=== PATIENT | male | born 1965 | race Caucasian/White ===

== ENCOUNTER 2019-08-22 16:14 | Emergency (ER) | payer SELFPAY ==
[~2019-08-22] VITALS: Ht 170.2 cm; Wt 94.3 kg
--- NOTE | 2019-08-22 16:14 | NUR ---
53/M BIBA FROM [facility] FOR ETOH INTOXICATION. PT DENIES CP, SOB, N/V, DENIES ANY PAIN. PT AOX2 (NAME, PLACE), SPEECH SLURRED, SLOW TO ANSWER, +ETOH SMELL, SKIN FLUSHED WARM AND DRY, RR EVEN AND UNLABORED. LUNG SOUNDS CLEAR BL. BS HYPOACTIVE X4, ABD SOFT LARGE ROUND NONTENDER TO TOUCH. WET PANTS NOTED DUE TO PT URINATING SELF. DENIES KNOWN MED HX.
[2019-08-22 16:21] VITALS: BP 130/69
--- NOTE | 2019-08-22 16:29 | NUR ---
DR DOUGLAS AT BEDSIDE
--- NOTE | 2019-08-22 17:00 | NUR ---
PT ELOPED AT THIS TIME.
--- NOTE | 2019-08-22 17:00 | NUR ---
PT AOX4, AMBULATORY WITH STEADY GAIT, REFUSED FURTHER MEDICAL TREATMENT/EVALUATION, DR DOUGLAS MADE AWARE.
== END 2019-08-22 17:00 | disposition left against medical advice (07) ==
LOC: MED 16:14
DX: F10.129 Alcohol abuse with intoxication, unspecified (principal); R06.00 Dyspnea, unspecified; R06.02 Shortness of breath
CPT/HCPCS: 71046; 99283